=== PATIENT | male | born 1940 | race Caucasian/White ===

== ENCOUNTER 2016-06-12 11:40 | Inpatient (IN) | payer OTHER ==
[~2016-06-12] VITALS: Ht 157.5 cm; Wt 60.8 kg
[2016-06-12 11:47] VITALS: BP 179/91; PULSE 86; RESP 20; TEMP 97.6; O2SAT 97
--- NOTE | 2016-06-12 11:54 | NUR ---
Pt placed to ER bed 08. Report given to FIDELIA Fortune.
--- NOTE | 2016-06-12 11:55 | NUR ---
PT. TO ER BROUGHT IN BY EMS [id number] S/P FALL THAT HAPPENED YESTERDAY, PER PT. HE FGEELS FINE CALLED 911 TO GET THE PT. MEDICALLY CLEARED, PT. STATES THAT HE DOES NOT REMEMBER THE FALL, PER EMS STATED THAT HE WAS EARLIER BLEEDING TO HIS FADI TO DIALYSIS SHUNT, NO BLEEDING AT THIS TIME, DSG TO LEFT HEAD S/P MELANOMA REMOVAL, PT. C/O RIGHT RIB PAIN, NO OTHER COMPLAINTS
--- NOTE | 2016-06-12 11:56 | NUR ---
dr. plascencia at bedside examoning the pt.
--- NOTE | 2016-06-12 12:00 | NUR ---
LAB AT BEDSIDE DRAWING BLOOD
[2016-06-12 12:21] LABS: BASOPHILS % (AUTO) 0.2 % (0.0-2.0); EOSINOPHILS # (AUTO) 0.1 K/uL (0.0-0.4); EOSINOPHILS % (AUTO) 0.8 % (0.0-4.0); HEMATOCRIT 28.6 % (36-54); HEMOGLOBIN 9.3 g/dL (14.0-18.0); LYMPHOCYTES # (AUTO) 0.4 K/uL (1.0-5.5); MEAN CORPUSCULAR HEMOGLOBIN 33 pg (27-31); MEAN CORPUSCULAR HGB CONC 33 % (32-36); MEAN CORPUSCULAR VOLUME 102 fL (79.0-98.0); MONOCYTES # (AUTO) 0.8 K/uL (0.0-1.0); MONOCYTES % (AUTO) 10.6 % (1.7-9.3); NEUTROPHILS # (AUTO) 6.4 K/uL (1.8-7.7); NEUTROPHILS % (AUTO) 83.4 % (40.0-70.0); PLATELET COUNT (AUTO) 292 K/uL (130-430); RED BLOOD CELL COUNT(AUTO) 2.81 MIL/uL (4.2-6.2); RED CELL DISTRIBUTION WIDTH 14.3 % (9.0-15.0); WHITE BLOOD COUNT (AUTO) 7.7 K/uL (4.8-10.8)
--- NOTE | 2016-06-12 12:30 | NUR ---
MILD BLEEDING TO RIGHT UPPER ARM, SURGICEL APPLIED WITH 4X4 DRESSING IN PLACE, PT. TOLERATED WELL
[2016-06-12 12:38] LABS: ANION GAP 10 (5-15); CALCIUM 8.8 mg/dL (8.4-11.0); CHLORIDE 101 mmol/L (98-107); CREATININE 3.34 mg/dL (0.55-1.30); GLUCOSE 101 mg/dL (70-99); POTASSIUM 4.7 mmol/L (3.5-5.1); SODIUM SERUM 139 mmol/L (136-145); UREA NITROGEN, BLOOD 27 mg/dL (8-21)
[2016-06-12 12:42] LABS: INR 1.7 (0.80-1.20); PROTHROMBIN TIME 18.6 SECS (9.5-12.5)
[2016-06-12 12:43] LABS: ALANINE AMINOTRANSFERASE 12 U/L (12-78); ALBUMIN 2.9 g/dL (3.4-4.8); ASPARTATE AMINOTRANSFERASE 21 U/L (10-37); TOTAL BILIRUBIN 0.5 mg/dL (0.0-1.0); TOTAL PROTEIN, SERUM 7.1 g/dL (6.4-8.3)
--- NOTE | 2016-06-12 13:00 | NUR ---
NO BLEEDINF AT SITE NOTED AT THIS TIME, VITALS STABLE
[2016-06-12] MEDS ORDERED: ACETAMINOPHEN 500 MG TABLET PO ONE (13:30)
--- NOTE | 2016-06-12 13:55 | NUR ---
FOOD TRAY PROVIDED PER PT.'S REQUEST, AWARE
[2016-06-12] MEDS ORDERED: 0.45% NACL 1,000 ML IV SCH (13:57)
--- NOTE | 2016-06-12 14:02 | NUR ---
PT. VERBALIZED COMFORT, PAIN 0/10, STILL NOT BACK WITH LIST OF HIS MEDICATION
[2016-06-12] MEDS ORDERED: WARF1TAB2 PO (14:08)
--- NOTE | 2016-06-12 14:15 | NUR ---
BE AVAILABLE IN TELE 111 A, PT. STILL EATING FINISHING UP WITH HIS MEAL, WILL BE TRANSFERED TO TELE AFTER PT. FINISHES HIS FOOD
--- NOTE | 2016-06-12 14:35 | NUR ---
. ACTIVE BLEEDING NOTED TO FADI AT SHUNT SITE, DR. SIDDIQUI AT [facility] APPLYING SUTURE
[2016-06-12] MEDS ORDERED: OMEP20CA10 PO (14:36)
[2016-06-12] MEDS ORDERED: DOCU-144 PO (14:36)
[2016-06-12] MEDS ORDERED: PRAV20TA PO (14:36)
[2016-06-12] MEDS ORDERED: CARV6.2554 PO (14:36)
[2016-06-12] MEDS ORDERED: AMOX-423 PO (14:36)
[2016-06-12] MEDS ORDERED: HYDR-1189 PO (14:36)
[2016-06-12] MEDS ORDERED: WARF2.5T2 PO (14:36)
--- NOTE | 2016-06-12 14:36 | NUR ---
Medication reconciliation completed with information provided by . Any prior medication reconciliation on file was reviewed and corrected.
--- NOTE | 2016-06-12 14:45 | NUR ---
Patient will be admitted to care of dr. reese. Admitted to tele unit. Will go to room 111a. Summary report printed. Report given to admitting nurse
--- NOTE | 2016-06-12 14:51 | NUR ---
ADMISSION NOTE Received patient from ER via gurney. Patient admitted with diagnosis of malfunction fistula. Patient oriented to hospital routine, call light, toileting and safety-patient verbalized understanding.
[2016-06-12 15:09] VITALS: BP 125/69; PULSE 66; RESP 18; TEMP 98.4; O2SAT 97
--- NOTE | 2016-06-12 15:34 | NUR ---
SURGICAL CONSULT Spoke with Jessica regarding request for consultation with Dr. Xiao ([phone]) for reason: malfunction fistula, AV shunt bleed. Dr. Xiao is currently on floor rounding.
[2016-06-12] MEDS ORDERED: LORazepam 1 MG TABLET PO PRN (16:30)
[2016-06-12] MEDS ORDERED: DOCUSATE SODIUM 100 MG CAPSULE PO PRN (16:30)
--- NOTE | 2016-06-12 16:50 | NUR ---
Patient Off [facility]: Pt off heredia to CT with Transport assist to [facility]. Pt is medically stable at this time. No acute signs of bleeding noted.
--- NOTE | 2016-06-12 18:30 | NUR ---
Pt Return: Patient return to [facility]. Tele box in place, IV fluids restarted to LUE. Call light in reach. Fall precautions in place. Continue to monitor.
[2016-06-12 18:47] LABS: BASOPHILS % (AUTO) 0.6 % (0.0-2.0); EOSINOPHILS # (AUTO) 0.1 K/uL (0.0-0.4); EOSINOPHILS % (AUTO) 1.1 % (0.0-4.0); HEMATOCRIT 26.6 % (36-54); LYMPHOCYTES # (AUTO) 0.5 K/uL (1.0-5.5); LYMPHOCYTES % (AUTO) 6.4 % (20.5-51.5); MEAN CORPUSCULAR HEMOGLOBIN 33 pg (27-31); MEAN CORPUSCULAR HGB CONC 34 % (32-36); MEAN CORPUSCULAR VOLUME 99 fL (79.0-98.0); MONOCYTES # (AUTO) 0.9 K/uL (0.0-1.0); MONOCYTES % (AUTO) 12.9 % (1.7-9.3); NEUTROPHILS # (AUTO) 5.7 K/uL (1.8-7.7); PLATELET COUNT (AUTO) 269 K/uL (130-430); RED BLOOD CELL COUNT(AUTO) 2.69 MIL/uL (4.2-6.2); RED CELL DISTRIBUTION WIDTH 14.3 % (9.0-15.0); WHITE BLOOD COUNT (AUTO) 7.2 K/uL (4.8-10.8)
[2016-06-12 19:30] VITALS: BP 146/65; PULSE 67; RESP 18; TEMP 98.1; O2SAT 96
--- NOTE | 2016-06-12 19:30 | NUR ---
Initial Notes Pt is A/Ox4, pleasant and cooperative. Pt denies any pain or sob at this time. POC discussed with pt and family, all verbalized understanding. Will re inforce teaching as needed. Pt educated on risk for falls due to hx of falls, and also educated on using call light and ext for nurse. Safety precautions in place, side rails up x3 with bed in lowest, locked position, bed alarm on at all times. Two dressings noted to right arm, upper dressing is cdi, dressing to lower right arm noted to have some dry sticky blood, will change dressing to right lower arm. Dressing to left elbow noted, cdi. Dressing to left side of scalp noted with some dry blood, but not to be changed as per pt and family's request, it is from a skin graft done recently per family's information received. VSS. IV to left hand #24g intact, and infusing well with 1/2NS@40ml/hr. All needs met at this time. Call light within reach. Will continue to monitor.
--- NOTE | 2016-06-12 19:37 | NUR ---
Closing Note: Pt sitting semi-fowlers in bed. No acute signs of distress noted. Pt is eating dinner at this time. AV shunt in place to LUE. Dressing intact to left head, per patient this is a surgical dressing and cannot be removed for pictures at this time. Dressing intact to left elbow, left lower leg, and right hand. Pt denies pain. No acute signs of bleeding noted. Seizure precautions in place. Side rails padded, bed in lowest positioned, call light in reach. No other needs noted. Pt is able to make needs known. Patient educated on need to call for assist prior to ambulating. No acute signs of tremors or alcohol withdrawals noted. Called [facility] and left a message in radiology department asking them to call us back at nurse's station so that we can obtain preliminary results of CT scan. Endorse plan of care and follow-up with [facility] to RADHA Greenberg.
--- NOTE | 2016-06-12 19:59 | NUR ---
Left message with Radiology at [facility] Called Radiology at [facility] [phone], no answer, left detailed message and asked that CT Results of the head be faxed over to [phone].
--- NOTE | 2016-06-12 20:44 | NUR ---
MD RAGLAND DRAVOSBURGSharif [facility] AT [phone]ARGISHTI RATLIFF NARINE PROFESSOR OF BIBLICAL STUDIES.
--- NOTE | 2016-06-12 20:49 | NUR ---
Spoke with Dr Almendarez Spoke with Dr Almendarez informed of critical troponin 0.071. No new orders received.
[2016-06-12] MEDS ORDERED: SIMVASTATIN 10 MG TABLET PO SCH (21:00)
--- NOTE | 2016-06-12 21:11 | NUR ---
MD RAGLAND TRENTONSharif [facility] AT [phone]ARGISHTI RATLIFF NARINE ONCOLOGY NURSE.
[2016-06-12] MEDS ORDERED: ZOLPIDEM TARTRATE 5 MG TABLET PO PRN (21:15)
[2016-06-12] MEDS ORDERED: CALCIUM CARBONATE/MAG HYDROX 1 TAB.CHEW PO PRN (21:15)
[2016-06-12] MEDS ORDERED: MAG-AL HYDROX/SIMETH 30 ML UDC PO PRN (21:45)
[2016-06-12] MEDS: AMOXICILLIN/CLAVULANATE POTASSIUM 500 MG TABLET PO SCH (21:51)
--- NOTE | 2016-06-12 21:51 | NUR ---
Rounds All scheduled medications discussed with pt at this time. Pt educated on sleeping pill Ambien given and possible side effects such as drowsiness, dizziness, and light headedness. Also informed patient that Mylanta is given for indigestion as he requested. All needs met at this time. Safety measures in place, with bed alarm on at all times. Pt informed that alarm bed will be on at all times. Call light in reach. Will continue to monitor.
--- NOTE | 2016-06-12 22:39 | NUR ---
NEPH CONSULT: DR BRANTLEY Consult was called, RE esrd s/w Kourtney
--- NOTE | 2016-06-12 22:39 | NUR ---
Dressing change Old dressing to right forearm noted with dry blood. Dressing removed with NS, and padded dry. Skin tears noted, oil emulsion placed x2, and non adherent dressing, wrapped with Kerlix, and secured with paper tape. Pt tolerated well. All needs met. Call light in hand. Pt stated he was starting to feel sleepy. Will continue to monitor.
[2016-06-13 00:06] VITALS: BP 150/77; PULSE 60; RESP 18; TEMP 97.4; O2SAT 98
[2016-06-13] MEDS: HYDROcodone/ACETAMIN 5-325 MG TAB (NORCO/ VICODIN) PO PRN ×2 (02:27→08:36)
--- NOTE | 2016-06-13 02:27 | NUR ---
Pain Management Pt c/o pain 09/18 to left leg. Pt medicated with [place] 5-325mg 1 tab as ordered. Pt educated on possible side effects and encouraged to call nurse for assistance. Call light in hand. Will continue to monitor.
--- NOTE | 2016-06-13 03:44 | NUR ---
Rounds Pt awake, pt re positioned with pillows for comfort at this time. No acute distress noted. All needs met. Call light in hand. Will continue to monitor.
[2016-06-13 04:30] VITALS: BP 159/74; PULSE 64; RESP 18; TEMP 98; O2SAT 99
[2016-06-13] MEDS: AMOXICILLIN/CLAVULANATE POTASSIUM 500 MG TABLET PO SCH (05:49)
--- NOTE | 2016-06-13 07:05 | NUR ---
Closing Notes Pt is awake, alert and oriented at this time. Scheduled medications given as ordered. Pt assisted with re positioning. Pt denies any pain at this time. All needs met throughout shift. Will endorse care to am nurse. Call light in hand.
--- NOTE | 2016-06-13 07:47 | NUR ---
AM Rounds: Received pt sitting semi-fowlers in bed. No acute signs of distress noted. IV intact to RUE. AV fistula to right arm with no acute signs of bleeding noted. Pt c/o abdominal pain at this time. Will medicate for pain and blood pressure. No other needs noted at this time. Call light in reach. Seizure pads in place. Pt refuses SCDs. Pt educated on need for SCDs to prevent clots but pt continues to refuse. Pt educated on need to call prior to ambulating and pt verbalizes understanding. No shaking, tremors noted. Pt denies hallucinations. Call light in reach. Fall precautions in place. Bed alarm on. Continue to monitor.
[2016-06-13 08:15] VITALS: BP 182/84; PULSE 62; RESP 14; TEMP 98.6; O2SAT 98
[2016-06-13 08:19] LABS: ALANINE AMINOTRANSFERASE 12 U/L (12-78); ALBUMIN 2.5 g/dL (3.4-4.8); ANION GAP 6 (5-15); ASPARTATE AMINOTRANSFERASE 21 U/L (10-37); CALCIUM 8.2 mg/dL (8.4-11.0); CHLORIDE 98 mmol/L (98-107); CREATININE 3.87 mg/dL (0.55-1.30); GLUCOSE 98 mg/dL (70-99); POTASSIUM 4.8 mmol/L (3.5-5.1); SODIUM SERUM 132 mmol/L (136-145); TOTAL BILIRUBIN 0.5 mg/dL (0.0-1.0); UREA NITROGEN, BLOOD 39 mg/dL (8-21)
[2016-06-13] MEDS ORDERED: THIAMINE HCL 100 MG TABLET PO SCH (09:00)
[2016-06-13] MEDS ORDERED: OMEPRAZOLE 20 MG CAPSULE.DR (PriLOSEC) PO SCH (09:00)
[2016-06-13] MEDS ORDERED: MULTIVITAMINS TAB 1 TABLET PO SCH (09:00)
[2016-06-13] MEDS ORDERED: CARVEDILOL 6.25 MG TABLET (COREG) PO SCH (09:00)
[2016-06-13] MEDS ORDERED: FOLIC ACID 1 MG TABLET PO SCH (09:00)
--- NOTE | 2016-06-13 09:23 | NUR ---
RN Rounds: AM meds given per MD order. No acute signs of distress noted at this time. IV intact to RUE with no redness or swelling noted to site. Pt also medicated for c/o abdominal pain. Call light in reach, Bed alarm on. Fall precautions in place. Seizure pads in place. Continue to monitor.
[2016-06-13 10:05] VITALS: BP 120/61
[2016-06-13 11:09] VITALS: BP 137/67; PULSE 61; RESP 14; TEMP 97.9; O2SAT 98
--- NOTE | 2016-06-13 11:35 | NUR ---
D/C Patient Patient given medication reconciliation form and D/C instructions. Exit Care provided. Patient verbalized understanding. MD discussed with patient the results and treatment provided. Ambulatory with steady gait for discharge to home. Patient in stable condition, ID band removed. IV catheter removed, intact and dressing applied, no active bleeding. No Rx given. Patient educated on pain management and need to follow up with Dr. Levin tomorrow for anticoagulation. All belongings sent with patient.
[2016-06-13 12:08] VITALS: BP 130/57; PULSE 61; RESP 18; TEMP 98; O2SAT 98
--- NOTE | 2016-06-21 14:38 | NUR ---
Discharge Follow Up Phone Call CASTING MACHINE SET UP OPERATOR phoned patient, , on 06/16/16, 06/18/16, and 06/21/16 and left voicemail messages with offer of assistance and Social Service contact information. No further calls will be attempted.
== END 2016-06-13 11:55 | disposition home or self-care (01) | DRG 314 ==
LOC: SED 11:40 → STU 13:58 → UNDOADMIN 13:58 → SED 14:45 → STU 14:45 → UNDODISIN 06-13 11:35
PROVIDERS: ADMIT Internal Medicine; ATTEND Internal Medicine
PROC: 0HQDXZZ Repair Right Lower Arm Skin, External Approach (ICD-10-PCS; principal; 2016-06-12)
DX: T82.838A Hemorrhage due to vascular prosthetic devices, implants and grafts, initial encounter (principal); N18.6 End stage renal disease; I12.0 Hypertensive chronic kidney disease with stage 5 chronic kidney disease or end stage renal disease; E78.5 Hyperlipidemia, unspecified; Z66 Do not resuscitate; F10.10 Alcohol abuse, uncomplicated; I25.10 Atherosclerotic heart disease of native coronary artery without angina pectoris; I48.91 Unspecified atrial fibrillation; E11.22 Type 2 diabetes mellitus with diabetic chronic kidney disease; D64.9 Anemia, unspecified; Y83.8 Other surgical procedures as the cause of abnormal reaction of the patient, or of later complication, without mention of misadventure at the time of the procedure; W19.XXXA Unspecified fall, initial encounter; Y92.89 Other specified places as the place of occurrence of the external cause; Y93.89 Activity, other specified; Y99.8 Other external cause status; Z85.820 Personal history of malignant melanoma of skin; Z86.73 Personal history of transient ischemic attack (TIA), and cerebral infarction without residual deficits; Z95.1 Presence of aortocoronary bypass graft; Z99.2 Dependence on renal dialysis; Z88.8 Allergy status to other drugs, medicaments and biological substances; Z79.01 Long term (current) use of anticoagulants; Z79.899 Other long term (current) drug therapy
CPT/HCPCS: 36415; 70450-TC; 71010; 80053; 83605; 84484; 85025; 85610-TC; 85730-TC; 87040-TC; 93005; 99285

== ENCOUNTER 2016-09-06 04:46 | Emergency (ER) | payer OTHER ==
[~2016-09-06] VITALS: Ht 157.5 cm; Wt 63.5 kg
[2016-09-06 04:46] VITALS: BP_SYST 136
[~2016-09-06 04:46] MED LIST: AMOX-423 PO; CARV6.2554 PO; DOCU-144 PO; HYDR-1189 PO; OMEP20CA10 PO; PRAV20TA PO; WARF2.5T2 PO
[2016-09-06 06:44] LABS: HEMATOCRIT 28.5 % (36-54); HEMOGLOBIN 9.4 g/dL (14.0-18.0); MEAN CORPUSCULAR HEMOGLOBIN 33 pg (27-31); MEAN CORPUSCULAR HGB CONC 33 % (32-36); MEAN CORPUSCULAR VOLUME 100 fL (79.0-98.0); PLATELET COUNT (AUTO) 213 K/uL (130-430); RED BLOOD CELL COUNT(AUTO) 2.84 MIL/uL (4.2-6.2); RED CELL DISTRIBUTION WIDTH 14.3 % (9.0-15.0); WHITE BLOOD COUNT (AUTO) 7.3 K/uL (4.8-10.8)
[2016-09-06 07:01] LABS: ANION GAP 16 (5-15); CALCIUM 8.6 mg/dL (8.4-11.0); CHLORIDE 97 mmol/L (98-107); CREATININE 5.31 mg/dL (0.55-1.30); GLUCOSE 130 mg/dL (70-99); SODIUM SERUM 134 mmol/L (136-145); UREA NITROGEN, BLOOD 61 mg/dL (8-21)
[2016-09-06 07:06] LABS: ALANINE AMINOTRANSFERASE 12 U/L (12-78); ALBUMIN 2.7 g/dL (3.4-4.8); ASPARTATE AMINOTRANSFERASE 19 U/L (10-37); INR 5.6 (0.80-1.20); PROTHROMBIN TIME 64.7 SECS (9.5-12.5); TOTAL BILIRUBIN 0.5 mg/dL (0.0-1.0); TOTAL PROTEIN, SERUM 6.9 g/dL (6.4-8.3)
[2016-09-06] MEDS ORDERED: traMADol HCL HCL 50 MG TABLET (ULTRAM) PO ONE (07:45)
[2016-09-06] MEDS ORDERED: ONDANSETRON HCL 4 MG/2 ML VIAL IVP ONE (08:45)
[2016-09-06 10:25] LABS: BAND % (MANUAL) 1 % (0-6); BASOPHILS % (MANUAL) 0 % (0-2); EOSINOPHILS % (MANUAL) 2 % (0-7); LYMPHOCYTES % (MANUAL) 1 % (20-46); MONOCYTES % (MANUAL) 4 % (0-11)
[2016-09-06 12:45] VITALS: BP_SYST 163
== END 2016-09-06 12:45 ==
LOC: SED 04:46
DX: S70.02XD Contusion of left hip, subsequent encounter (principal); S00.03XA Contusion of scalp, initial encounter; I10 Essential (primary) hypertension; E11.29 Type 2 diabetes mellitus with other diabetic kidney complication; N28.9 Disorder of kidney and ureter, unspecified; Z88.8 Allergy status to other drugs, medicaments and biological substances; W19.XXXD Unspecified fall, subsequent encounter; W19.XXXA Unspecified fall, initial encounter; Y93.89 Activity, other specified; Y92.89 Other specified places as the place of occurrence of the external cause; Y99.8 Other external cause status
CPT/HCPCS: 36415; 70450; 71010; 72125; 72170; 72192; 80053; 85007; 85027; 85610; 85730; 96374; 99285; J2405